=== PATIENT | male | born 1955 | race Caucasian/White ===

== ENCOUNTER 2017-12-30 13:53 | Emergency (ER) | payer OTHER ==
[2017-12-30 14:01] VITALS: TEMP 98.4
--- NOTE | 2017-12-30 14:20 | CPEKG ---
Heart Rate: 46 RR Interval: 1304 P-R Interval: 152 QRSD Interval: 96 QT Interval: 440 QTC Interval: 385 P Bath: 54 QRS Bath: -21 T Wave Bath: 41 EKG Severity - OTHERWISE NORMAL ECG - EKG Impression: SINUS BRADYCARDIA EKG Impression: BORDERLINE LEFT AXIS DEVIATION Electronically Signed By: Kiah Dumont 30-Dec-2017 21:23:22
--- NOTE | 2017-12-30 14:44 | EDPHY ---
H & P Time Seen by Provider: 12/30/17 14:38 HPI/ROS: CHIEF COMPLAINT: Anxiety HISTORY OF PRESENT ILLNESS: The patient is a 62 y/o male with a history of hypertension complaining of anxiety today. He woke up at 01:00, 14 hours ago, to urinate and then was unable to get back to sleep because of anxiety. He was fine when he was up and walking around, but when he laid down, he felt anxious. He had no associated symptoms and known alleviating or aggravating factors. Specifically, he had no chest pain or shortness of breath. He feels normal now. While shoveling snow today he did not have chest pain or shortness of breath. He has a history of anxiety and prior panic attacks, but this episode lasted longer. Started taking Amoxicillin and hydrocodone for a dental infection yesterday evening. Denies chest pain, shortness of breath, abdominal pain, urinary or bowel complaints, fever. REVIEW OF SYSTEMS: Aside from elements discussed in the HPI, a comprehensive 10-point review of systems was reviewed and is negative. Past Medical/Surgical History: Hypertension Social History: at bedside, lives in [place], self-employed Smoking Status: Never smoked Physical Exam: General Appearance: Alert, pleasant and talkative, wearing sunglasses Eyes: Pupils equal and round, no conjunctival pallor or injection ENT, Mouth: Mucous membranes moist Neck: Normal inspection Respiratory: Lungs are clear to auscultation Cardiovascular: Regular rate and rhythm Gastrointestinal: Abdomen is soft and non-tender Neurological: A&O, nonfocal Skin: Warm and dry, no rash Extremities: Nontender, no pedal edema Psychiatric: Anxious Constitutional: Initial Vital Signs Temperature (C) 36.9 C 12/30/17 13:59 Heart Rate 54 L 12/30/17 13:59 Respiratory Rate 18 12/30/17 13:59 Blood Pressure 132/39 H 12/30/17 13:59 O2 Sat (%) 97 12/30/17 13:59 O2 Delivery Mode Room Air Allergies/Adverse Reactions: No Known Allergies Allergy (Unverified 12/30/17 13:58) Home Medications: Medication Instructions Recorded AMOXICILLIN 12/30/17 Hydrocodone Bit/Acetaminophen 12/30/17 Lisinopril 12/30/17 Medical Decision Making - Diagnostics EKG Interpretation: EKG interpreted by me reveals normal sinus bradycardia with a rate of 46, borderline left axis deviation, normal intervals, ST and T segments normal. Interpretation: normal EKG Imaging: I viewed and interpreted images myself ED Course/Re-evaluation: The patient is a 62 y/o male with a history of hypertension presenting with anxiety, onset 14 hours ago. His physical exam is normal. I specifically asked the patient if he had shortness of breath or chest pain, which he denies. No feeling of "doom" (as noted in RN charting). Labs, chest x-ray, and EKG ordered. 600mg PO Motrin administered. 1418: EKG interpreted by myself 1527: Reassessed patient and discussed laboratory and imaging findings. I have advised him to follow up with his PCP regarding his elevated creatinine today. He reports that his PCP is aware of the renal insufficiency and recommended that further testing be preformed. The patient has not done these further tests , and there are no old labs for comparison. Return precautions provided; patient is comfortable with this plan. Differential Diagnosis: Differential diagnosis includes though not limited to hypoxia, acute coronary syndrome, infectious etiology, panic attack. - Data Points Laboratory Results: Laboratory Results 12/30/17 14:17 12/30/17 14:17 Medications Given: Discontinued Medications Ibuprofen (Motrin) 600 mg PO EDNOW ONE Stop: 12/30/17 14:53 Last Admin: 12/30/17 15:18 Dose: 600 mg Departure - Departure Disposition: Home, Routine, Self-Care Clinical Impression: Anxiety, Renal insufficiency Condition: Good Instructions: Anxiety (ED) Additional Instructions: Follow-up with your primary doctor in 1-2 days. Your creatinine is elevated today (1.9). The creatinine is a measure of your kidney function and when the creatinine is elevated, your kidneys are not working as well as usual. Return to the Emergency Department for fever, chest pain, shortness of breath, increasing pain, or other worsening of condition. Referrals: Kang Reynolds MD [Primary Care Provider] - As per Instructions Report Scribed for: Kiah Dumont Report Scribed by: Lidia Payne Date of Report: 12/30/17 Time of Report: 14:43 Physician Review and Approval Statement: 12/30/17 14:43 Portions of this note were transcribed by a certified court/medical interpreter. I personally performed a history, physical exam, medical decision making, and confirmed accuracy of information the transcribed note.
[2017-12-30 14:46] LABS: PLATELET COUNT 274 10^3/uL (150-400)
[2017-12-30] MEDS ORDERED: IBUPROFEN 600 MG TAB PO ONE (14:52)
[2017-12-30 15:53] VITALS: BP 118/83; PULSE 47; RESP 16; O2SAT 96
== END 2017-12-30 15:45 | disposition home or self-care (01) ==
DX: F41.9 Anxiety disorder, unspecified (principal); N28.9 Disorder of kidney and ureter, unspecified